=== PATIENT | female | born 2005 | race Caucasian/White ===

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

== ENCOUNTER → 2023-09-23 11:23 | Outpatient (CLI) | payer OTHER, SELFPAY ==
[2023-09-23 12:57] LABS: Add Manual Diff / Slide Review NO; Basophils Absolute Auto 100 /uL (0-100); Basophils Percent Auto 1.2 % (0-2); Eosinophils Absolute Auto 200 /uL (0-450); Eosinophils Percent Auto 3.5 % (2-4); Hematocrit 42.5 % (36-46); Hemoglobin 14.7 g/dL (12.0-16.0); Lymphocytes Absolute Auto 2300 /uL (1100-4500); Lymphocytes Percent Auto 42.1 % (25-40); Mean Corpuscular HGB Conc 34.7 % (30-36); Mean Corpuscular Hemoglobin 31.5 PG (26-34); Mean Corpuscular Volume 90.8 fL (80-100); Monocytes Absolute Auto 300 /uL (0-900); Monocytes Percent Auto 5.5 % (3-14); Neutrophils Absolute Auto 2600 /uL (1500-7000); Neutrophils Percent Auto 47.7 % (50-75); Platelet Count 239 X10^3/uL (150-400); Red Blood Cell Count 4.68 X10^6/uL (4.0-5.2); Red Cell Distribution Width 13.6 % (11.6-14.8); White Blood Cell Count 5.4 X10^3/uL (4.5-11.0)
[2023-09-23 13:25] LABS: Alanine Aminotransferase 14 IU/L (<35); Albumin 5.2 g/dL (3.5-5.0); Albumin Globulin Ratio 1.9 (1.0-2.8); Alkaline Phosphatase 74 U/L (38-126); Aspartate Aminotransferase 21 IU/L (14-36); BUN Creatinine Ratio 15.3 (6-22); Bilirubin Total 0.7 mg/dL (0.2-1.3); Blood Urea Nitrogen 9 mg/dL (7-17); Carbon Dioxide 25 mmol/L (22-32); Chloride 108 mmol/L (98-107); Cholesterol 175 mg/dL (140-199); Estimated Glomerular Filt Rate > 60 mL/min (>60); Globulin 2.7 g/dL (1.7-4.1); Glucose 80 mg/dL (70-100); HDL Cholesterol 61 mg/dL (40-60); HEMOLYSIS < 15 (0-50); LDL Cholesterol Calculated 103 mg/dL (<100); Potassium 4.1 mmol/L (3.4-5.1); Sodium 141 mmol/L (137-145); Total Protein 7.9 g/dL (6.3-8.2); Triglycerides 57 mg/dL (35-150)
[2023-09-23 13:48] LABS: TSH w/ Reflex to FT4 1.01 uIU/mL (0.47-4.68)
== END ==
PROVIDERS: Family Provider Pediatrics; PCP Family Medicine; Referring Provider Family Medicine; Visit Provider Family Medicine
DX: R06.02 Shortness of breath (principal); I49.8 Other specified cardiac arrhythmias; Z82.49 Family history of ischemic heart disease and other diseases of the circulatory system
CPT/HCPCS: 36415; 80053; 80061; 84443; 85025

== ENCOUNTER → 2024-03-06 06:58 | Outpatient (CLI) | payer OTHER, SELFPAY ==
--- NOTE | 2024-03-06 06:59 | DI.ECHO.S_ITS ---
[facility] : : [address] : : [place] : : [id number] : : Phone: [phone] Echocardiogram Report + + :Name: ERIKA LATHAM Study Date: 03/06/2024 Height: 65 in : :[facility] ReadingLocation: Weight: 130 lb : : Gender: Female BSA: 1.6 m2 : :: 2005 Age: 18 yrs BP: 106/69 mmHg: :Reason For Study: MURMUR : :Ordering Physician: YAIR : :BAILEY Performed By: Aislinn Sanchez : :Referring: BAILEY MAZARIEGOS : + + Interpretation Summary 1) Normal left ventricular thickness, size, wall motion, and systolic function (EF 60-65%). 2) Normal right ventricular size and function. 3) No significant valvular abnormalities. 4) No prior Echo available for comparison. Procedure: A two-dimensional transthoracic echocardiogram with color flow and Doppler was performed. The study quality was technically good. There is no prior echocardiogram noted for this patient. The patient was in sinus rhythm with heart rates between 55-97 bpm during the exam. The patient had occasional PACs during the exam. Left Ventricle: The left ventricle is normal in size and wall thickness. The ejection fraction is estimated to be 60-65%. Left ventricular systolic function appears normal without focal wall motion abnormalities. Diastolic parameters suggest probable normal left ventricular diastolic function and normal filling pressures. Right Ventricle: The right ventricle is normal in size and function. Atria: Both atria are normal in size. There is no Doppler evidence for an interatrial shunt. Mitral Valve: There is a flat closure plane of the the mitral valve leaflets. There is no mitral valve stenosis. There is trace mitral regurgitation. Aortic Valve: The aortic valve is trileaflet. The aortic valve opens well. There is no aortic valve stenosis. No aortic regurgitation is present. Tricuspid Valve: The tricuspid valve leaflets are thin and pliable. There is a trace or physiologic amount of tricuspid regurgitation. The right ventricular systolic pressure is estimated to be at least 16 mmHg based on an estimated right atrial pressure of 3 mm Hg. Pulmonic Valve: The pulmonic valve leaflets are thin and pliable; valve motion is normal. There is a trace or physiologic amount of pulmonic regurgitation. Great Vessels: The aortic root is normal size. The ascending aorta is normal in size. The aortic arch is normal in size. The pulmonary artery is normal size. The IVC is of normal diameter and collapses greater than 50% with a sniff. This suggests a low right atrial pressure of 3 mm Hg. Pericardium/ Pleura There is no pericardial effusion. There is no pleural effusion. MMode/2D Measurements & Calculations LVIDd: 4.2 cm LVOT diam: 2.0 cm LVIDs: 2.5 cm Ao root diam: 2.7 cm FS: 39.4 % asc Aorta Diam: 2.2 cm EPSS: 0.52 cm Ao Arch Diam (Prox Trans): 2.0 cm IVSd: 0.83 cm LVPWd: 0.74 cm LV lamar. diameter/BSA (cm/m^2): 2.5 LV sys. diameter/BSA (cm/m^2): 1.5 LA A2 area: 16.9 cm2 RA long axis: 4.3 cm LA A4 area: 13.9 cm2 RA area: 10.1 cm2 LA length (vol): 4.5 cm RA vol: 20.1 ml LA vol: 44.4 ml RA : 12.2 ml/m2 LA vol index: 26.9 ml/m2 IVC diam: 1.6 cm TAPSE: 3.3 cm LVAd ap4: 29.5 cm2 LVAs ap4: 15.7 cm2 LVLs ap4: 6.9 cm LVAd ap2: 36.1 cm2 LVLd ap2: 9.3 cm LVAs ap2: 18.5 cm2 LVLs ap2: 7.3 cm Doppler Measurements & Calculations Ao V2 max: 126.5 cm/sec LVOT Max Jose L: 89.5 cm/sec Ao V2 mean: 88.0 cm/sec LV V1 max P.2 mmHg Ao max P.4 mmHg LV V1 VTI: 18.3 cm Ao mean P.5 mmHg GRANT(I,D): 2.1 cm2 Ao V2 VTI: 27.8 cm GRANT(V,D): 2.2 cm2 sev ratio: 0.66 GRANT indexed to BSA (cm^2/m^2): 1.3 MV E max jose l: 101.2 cm/sec TR max jose l: 180.2 cm/sec MV A max jose l: 73.9 cm/sec TR max P.0 mmHg MV E/A: 1.4 Med Peak E' Jose L: 12.1 cm/sec E/E' med: 8.4 Lat Peak E' Jose L: 14.3 cm/sec E/E' lat: 7.1 E/e' average: 7.7 MV dec time: 0.23 sec MVA(VTI): 2.0 cm2 MV V2 mean: 42.6 cm/sec SV(LVOT): 58.0 ml MV mean P.3 mmHg MV V2 VTI: 29.2 cm Reading Physician:12:19 PM
== END ==
LOC: ECHO 06:58
PROVIDERS: Family Provider Pediatrics; PCP Family Medicine; Referring Provider Family Medicine; Visit Provider Family Medicine
DX: R01.1 Cardiac murmur, unspecified (principal)
CPT/HCPCS: 93306